=== PATIENT | female | born 1955 | race Caucasian/White ===

== ENCOUNTER 2022-09-29 07:23 | Emergency (ER) | payer MEDICARE, SELFPAY ==
[2022-09-29 07:38] VITALS: BP 137/60; PULSE 68; RESP 12; TEMP 36.4; O2SAT 100
[2022-09-29 08:40] VITALS: BP 164/76; PULSE 68; O2SAT 98
--- NOTE | 2022-09-29 08:51 | ED.EAR ---
HPI - Ear Problem General Chief complaint: Ear Stated complaint: EAR PAIN Time Seen by Provider: 09/29/22 08:27 Source: patient and RN notes reviewed Mode of arrival: ambulatory Limitations: no limitations History of Present Illness HPI Narrative: THis is a 67 year old female who presents for evaluation of left ear pain. Patient reports that she noticed left ear tenderness yesterday. She has tenderness in front of ear and she has pain with movement of her ear. She also feels like ear is swollen. She denies fever, chills, nausea, vomiting, ear drainage and placing anything in the ear. She has taken ibuprofen 800 mg for pain without relief. Related Data Allergies Allergy/AdvReac Type Severity Reaction Status Date / Time latex Allergy Rash Verified 09/29/22 07:30 naproxen [From Naprosyn] Allergy Rash Verified 09/29/22 07:30 Review of Systems Review of Systems: All systems reviewed & are unremarkable except as noted in HPI and below PMFSH Past Medical History Medical History (Updated 09/29/22 @ 08:56 by Rossana Garcia MD) Hypertension Surgical History Surgical History (Updated 09/29/22 @ 08:54 by Rossana Garcia MD) No pertinent past surgical history Social History Social History (Updated 09/29/22 @ 08:53 by Rossana Garcia MD) Smoking status: Never smoker Exam Const: General: no acute distress and alert Nutritional Appearance: well nourished Orientation/consciousness: patient oriented x3 Limitations: no limitations HENMT: Head: normal to inspection, normocephalic and atraumatic Ears: TM normal on the left, Abnormal EAC present EAC tenderness on the left (TTP at tragus, mild swelling of tragus, otherwise no swelling, no discharge, no exudate) and TM abnormal obstructed by cerumen on the right Face and sinus: normal facial exam, sinuses nontender and face symmetric Mouth: Yes Normal oral and palatal mucosa present, Yes lip normal, Yes tongue normal, Yes oropharynx normal and Yes moist mucous membranes Throat: posterior oropharynx normal, tonsils normal and uvula midline Eyes: EOM: EOMs intact bilaterally Neck: Neck: normal visual inspection and no lymphadenopathy Resp: Effort & Inspection: normal respiratory effort Skin: General skin exam: normal color Rashes: no rashes Wounds: no wounds Neuro: General: patient oriented x3, moves all extremities and CN's II-XI intact bilaterally Cranial nerves: Yes Nystagmus not present Speech: normal speech Gait exam (Neuro): Normal gait present Extrem: General: normal to inspection Psych: Mental Status: mental status grossly normal Affect: normal affect Attitude: cooperative Course Reevaluation(s) Reevaluation #1: I Discussed with patient that she will be treated with oral antibiotics and ear drops . She will try warm compresses for pain. Date: 09/29/22 Time: 08:55 Vital Signs Vital signs: Vital Signs Temperature 97.6 F 09/29/22 07:38 Pulse Rate 68 09/29/22 07:38 Respiratory Rate 12 09/29/22 07:38 Blood Pressure 137/60 09/29/22 07:38 Pulse Oximetry 100 09/29/22 07:38 Temperature 97.6 F 09/29/22 07:38 Pulse Rate 68 09/29/22 08:40 Respiratory Rate 12 09/29/22 07:38 Blood Pressure 164/76 H 09/29/22 08:40 Pulse Oximetry 98 09/29/22 08:40 Medical Decision Making Vital Signs Vital Signs: Vital Signs Temperature 97.6 F 09/29/22 07:38 Pulse Rate 68 09/29/22 07:38 Respiratory Rate 12 09/29/22 07:38 Blood Pressure 137/60 09/29/22 07:38 Pulse Oximetry 100 09/29/22 07:38 Temperature 97.6 F 09/29/22 07:38 Pulse Rate 68 09/29/22 08:40 Respiratory Rate 12 09/29/22 07:38 Blood Pressure 164/76 H 09/29/22 08:40 Pulse Oximetry 98 09/29/22 08:40 Discharge Plan Discharge Clinical Impression: Otitis externa Patient Disposition: Home, Self-Care Condition: Stable Instructions: Antibiotic Form, Swimmer's Ear (GEN) Additional Instructions: Take antibiot
== END 2022-09-29 09:27 | disposition home or self-care (01) ==
PROVIDERS: Emergency Provider General Practice
DX: H60.92 Unspecified otitis externa, left ear (principal); I10 Essential (primary) hypertension
CPT/HCPCS: 99283